=== PATIENT | female | born 1955 | race Caucasian/White ===

== ENCOUNTER 2018-01-04 06:36 | Inpatient (IN) | payer BC, SELFPAY ==
[2018-01-04] VITALS (14 sets, daily range): BP systolic 80–126; BP diastolic 61–80; PULSE 58–82; RESP 12–20; TEMP 36.5–36.9; O2SAT 96–100; BMI 26.2; BMI 26.4; BMI 26.5
[2018-01-04 06:58] LABS: Absolute Lymphocyte Count 0.95 X10^3/ul (0.83-4.51); Absolute Neutrophil Count 11.7 X10^3/uL (2.0-7.7); Basophil# 0.02 X10^3/uL; Basophil% 0.2 % (0-1); Eosinophil# 0.05 X10^3/uL; Eosinophils% 0.4 % (0-5); Hemoglobin 15.3 g/dl (12.0-15.0); Lymphocyte # 0.95 X10^3/ul (4.0); Lymphocyte % 7.2 % (19-41); Mean Corp Hgb Conc 33.3 g/gl (32-36); Mean Corpuscular Hgb 31.5 pg (27.0-32.0); Mean Corpuscular Volume 94.8 fL (81-99); Mean Platelet Vol. 9.7 fl (6.2-12.0); Monocyte# 0.41 X10^3/uL; Monocyte% 3.1 % (0-10); Neutrophil # 11.74 X10^3/uL (2.7-7.7); Neutrophil % 88.9 % (47-70); Platelet Count 300 K/mm3 (150-450); RBC Distribution Width CV 12.8 % (11.6-14.6); RBC Distribution Width SD 44.1 fl (35.1-43.9); Red Blood Count 4.85 M/mm3 (4.2-5.4); White Blood Count 13.2 K/mm3 (4.4-11.0)
--- NOTE | 2018-01-04 06:59 | ED.VISSUMM ---
- ER Visit Summary Date of Service: 01/04/18 Chief Complaint: Bilateral abdominal pain with diarrhea and orthostatic symptoms History of Present Illness: The patient is a 62 F who has history of hypertension, diverticulitis with abscess and perforation who presents with bilateral abdominal pain associated with diarrhea. Onset of symptoms early this morning, 03: 00. Patient believes she saw blood with her diarrhea. She has had no ill contacts. She has not been on antibiotics recently. She has not eaten anything that had an unusual taste. She reports many loose stools. She reports the abdominal pain is right and left lower quadrant. She denies any discomfort with walking. She denies fever, chills or night sweats. She denies dysuria, frequency, urgency or hematuria. She denies any vaginal bleeding. She denies hematemesis. Patient denies any weight gain or weight loss. She denies any ocular, visual auditory symptoms. She denies any cardiac respiratory symptoms. She denies bruising easily and is on no anticoagulant or antiplatelet medication. She states her [facility] physician Dr. Cody and surgeon is Dr. Miller Currie. Physical Examination: Vital signs noted and remarkable for blood pressure of 80/61. She is not tachycardic. She is on no beta-michael. Head is atraumatic normocephalic. Pupils are equal round reactive. Extraocular muscles are intact. TMs are pearly white with landmarks noted. Nares patent with no drainage. Posterior pharynx without erythema or exudate. Uvula is midline. There is no dysphonia or dysphasia. Trachea is midline. There is no stridor with auscultation of the neck. Heart is regular without murmur, gallop or rub. S1 and S2 are normal. Lungs are clear to auscultation with good movement of air bilaterally. Abdomen is slightly tympanitic with tenderness right and left lower quadrant. There is no guarding or rebound tenderness. There is no inguinal lymphadenopathy or hernia. Rectal exam reveals no hemorrhoids, fissures or fistulas. Stool is brown with no blood noted. Neuro exam is nonfocal. Test Results: White count is elevated at 13.2 thousand with 89 segs no bands. CMP is remarkable for glucose of 153, BUN of 22 and a creatinine of 1.38. BUN to creatinine ratio is less than 21. GFR is 41. Lactate elevated 2.6. CT of the abdomen pelvis with IV contrast reveals pancolitis. Emergency Department Course and Treatment: IV was established. Since she is hypotensive she will receive a bolus. EKG was obtained to evaluate for evidence of cardiac ischemia since she is greater than 6 years of age. Appropriate blood work was obtained. Since there is no gross blood, melena or maroon stool she was not typed and crossed. Will reassess in 30-45 minutes to determine if more fluids are needed and further testing. With infectious etiology of her hypotension patient received additional fluids 2.5 L which is greater than 30 cc/kg. Blood cultures were ordered at that time I reviewed CT results and antibiotics were ordered. The hospitalist was paged for admission to PCU versus ICU. Treatment Plan: IV antibiotics, fluids and treatment for severe sepsis. She has seen Dr. Currie in the past for diverticulitis with perforated abscess. Disposition: Full admission Impression: 1. Hypotension fluid responsive 2. Severe sepsis 3. Pancolitis 4. Acute renal insufficiency 5. Hyperglycemia and nondiabetic patient This note was generated with [employer] dictation software. It may contain incorrect words, spelling, and punctuation that were not noted in review of the chart prior to signing ED Disposition - Plan for ED Patient: Chief Complaint: Abd Pain Referrals: Alexis Clark MD [Primary Care Provider] -
[2018-01-04 07:06] LABS: Bedside Glucose 137 mg/dL (70-110)
[2018-01-04 07:07] LABS: Anion Gap 10 (5-15); BUN 22 mg/dL (7-18); BUN/Creat Ratio 15.9 RATIO (10-20); Calcium,Total 10.3 mg/dL (8.5-10.1); Chloride 104 mmol/L (98-107); Creatinine, Serum 1.38 mg/dL (0.55-1.02); EST Glomerular Filtration Rate 41 mL/min (>60); Est Glom Filt Rate - Afr Amer 50 mL/min (>60); Estimated Creatinine Clearance 37.55 ml/min; Glucose 153 mg/dL (74-106); Potassium 3.7 mmol/L (3.5-5.1); Sodium Level 138 mmol/L (136-145)
[2018-01-04 07:12] LABS: POSITIVE COUNT NO; POSITIVE DIFFERENTIAL NO; POSITIVE MORPHOLOGY NO
[2018-01-04 07:18] LABS: Lactic Acid 2.6 mmol/L (0.4-2.0)
--- NOTE | 2018-01-04 07:18 | ED.RN ---
PER LAB LACTIC ACID 2.6, DR FERREIRA AWARE.
[2018-01-04] MEDS: 0.9% Normal Saline 1,000 ML 1000 ML IV (07:32)
[2018-01-04] MEDS: Ciprofloxacin 400 MG/200 ML BAG 200 MG IV ×2 (10:11→23:09)
--- NOTE | 2018-01-04 10:20 | CM.ED ---
Social Work Note Into complete initial assessment. Introduced self and role at [facility]. The pt reports to live alone in a one-story home and denies access issues. Pt reports to be independent with ADL's and denies use of DME. Confirms that her PCP is Dr. Clark. She has an appointment with Dr. Denis Villalpando in [place] tomorrow for her thyroid that she requests be cancelled. She also has an appointemnt on Thursday for a neuro scan. At this time does not want cancelled if she is discharged in time to have that scan done. Pt works FT and denies any anticipated needs at discharge. Uses [facility] in [place], and informed her of the pharmacy here at the hospital if she would like to use at discharge. RN CM on assigned unit to follow for discharge planning needs. Placed call to Dr. Villalpando's office in [place] at [phone] and cancelled the pt's appointment for tomorrow at 0815. Catia Bruce, [employer], MEDIA STRATEGIST
[2018-01-04 10:53] LABS: Reflex Lactate? Y
[2018-01-04 11:42] LABS: LDH 198 U/L (84-246)
[2018-01-04 12:07] LABS: Lactic Acid 2.4 mmol/L (0.4-2.0)
[2018-01-04] MEDS: 0.9% Normal Saline 1,000 ML 150 ML IV ×2 (12:36→20:29)
[2018-01-04] MEDS: Heparin Injection (Vial) 5,000 UNIT/ML VIAL 5000 UNIT SC ×2 (12:36→23:06)
--- NOTE | 2018-01-04 14:36 | PCM.HP.STD ---
Problem List (1) Colitis Status: Acute (2) Severe sepsis Status: Acute (3) Hypertension Status: Chronic (4) Hypotension Status: Acute History of Present Illness Date of Admission: 01/04/18 Chief Complaint: Abdominal pain and BRBPR The patient is a 62 year old F with a h/o non-malignant hypercalcemia, and HTN presenting with only a few hour h/o severe abdominal pain. She states she was in her usual health yesterday evening when she went to bed. She woke up this morning at 3 am with severe abdominal pain and diarrhea. She noticed that when she would wipe there was bright red blood on the toilet paper and in the toilet, but the stool was brown liquid. She has had diverticulitis in the past but nothing like this. She did not have any vomiting and the pain did not improve so she presented to the ER. CT in the ER showed a canales colitis with most of the inflammation on the right and transverse colon per my read. In the ER she was hypotensive into the 80's which improved with fluid and her lactate was 2.6 so she was admitted to the PCU for further management. 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 Denies: Nausea Genitourinary: Denies: Dysuria, Frequency Musculoskeletal: Denies: Joint Pain, Joint Tenderness Skin: Denies: Dryness, Jaundice, Rash Neurological: Denies: Blurred vision, Confusion, Focal weakness Psychiatric: Denies: Anxiety, Depression Hematologic/ Lymphatic: Denies: Adenopathy, Easy Bruising, Easy Bleeding VTE Information - Inpt Only VTE Present on Admission: No Patient Problems: Active and Suspected Problems Colitis (Acute) - Physical Exam General: Alert, Oriented x3, Cooperative, No apparent distress HEENT: Atraumatic, EOMI, Normocephalic Oral: Moist Mucosa Neck: Supple, No JVD Lungs: Clear to auscultation, Normal air movement, No rhonchi, No wheeze, No rales Cardiovascular: Regular rate, Regular Rhythm, Normal S1, Normal S2, No murmurs Abdomen: Soft, Non-Distended, No Hepato-splenomegaly, Tender - mild and generalized Extremities: No edema, Capillary Refill Less than 3 Seconds Skin: No rashes Neurological: Motor Exam 5/5 strength throughout, Sensory exam intact to light touch and pain Psych/Mental Status: Normal Affect, Appropriate Vital Signs Temp Pulse Resp BP Pulse Ox 98.0 F 58 L 17 118/78 100 01/04/18 12:00 01/04/18 12:00 01/04/18 12:00 01/04/18 12:00 01/04/18 12:00 Oxygen Delivery Method Room Air Weight: 158 lb 15.253 oz Body Mass Index (BMI) 26.4 Intake and Output for Last 24 Hours 01/02/18 01/03/18 01/04/18 23:59 23:59 23:59 Intake Total 735 / 735 Balance 735 / 735 Laboratory Tests Past 24 Hrs 01/04/18 11:12 Lactic Acid 2.4 H Assessment/Plan All Active Problems Colitis (Acute) Severe sepsis (Acute) Hypokalemia (Acute) Hypotension (Acute) Intra-abdominal free air of unknown etiology (Acute) 1. Severe sepsis with an elevated lactate secondary to colitis/Hematochezia - The differential with her is infectious vs inflammatory. The colitis is too diffuse to be ischemic - C/w cipro/flagyl for now - NS@150 - Lactate was elevated to 2.6 and improved to 2.4 so will continue with resuscitation - She was hypotensive into the 80's which hs resolved with sepsis bolus in the ER - Blood and stool cultures pending - C. diff is unlikely but will send if she has a loose BM - Monitor on PCU - NPO until pain improves - The blood was secondary to the diarrhea and not the colitis 2. Non-malignant hypercalcemia - Will continue IVF and her fosamax while admitted - She was to have a parathyroid scan today as an outpatient which will have to be rescheduled DVT: Heparin/SCDs Diet: NPO Code: FULL Code Visit Inpatient E&M: 57238 Init Hosp L3
--- NOTE | 2018-01-04 17:03 | NURSING ---
This RN taking over care at this time
[2018-01-04 20:25] LABS: Absolute Lymphocyte Count 1.68 X10^3/ul (0.83-4.51); Absolute Neutrophil Count 3.5 X10^3/uL (2.0-7.7); Basophil# 0.01 X10^3/uL; Basophil% 0.2 % (0-1); Eosinophil# 0.07 X10^3/uL; Eosinophils% 1.2 % (0-5); Hemoglobin 12.1 g/dl (12.0-15.0); Lymphocyte # 1.68 X10^3/ul (4.0); Lymphocyte % 29.6 % (19-41); Mean Corp Hgb Conc 32.7 g/gl (32-36); Mean Corpuscular Hgb 31.2 pg (27.0-32.0); Mean Corpuscular Volume 95.4 fL (81-99); Mean Platelet Vol. 9.6 fl (6.2-12.0); Monocyte# 0.46 X10^3/uL; Monocyte% 8.1 % (0-10); Neutrophil # 3.45 X10^3/uL (2.7-7.7); Neutrophil % 60.9 % (47-70); Platelet Count 234 K/mm3 (150-450); RBC Distribution Width CV 12.9 % (11.6-14.6); RBC Distribution Width SD 44.4 fl (35.1-43.9); Red Blood Count 3.88 M/mm3 (4.2-5.4); White Blood Count 5.7 K/mm3 (4.4-11.0)
[2018-01-04 20:26] LABS: POSITIVE COUNT NO; POSITIVE DIFFERENTIAL NO; POSITIVE MORPHOLOGY NO
--- NOTE | 2018-01-04 20:27 | PCM.CONS.GEN ---
Problem List (1) Colitis Status: Acute (2) Severe sepsis Status: Acute (3) Hypertension Status: Chronic Reason for Consult Date of Consultation: 01/04/18 Reason for Consultation: abdominal pain-colitis History of Present Illness: The patient is a 62 year old F who presented to [facility] for 1 day history of abdominal pain. The patient began her usual state of health without complaints yesterday. She stated she walks 5 miles and was otherwise doing well. She notes no recent antibiotic use. She notes no recent travel. She notes no other recent illnesses. The patient noted onset of abdominal pain early in the morning. Approximately 3 AM. She then noted the onset of crampy abdominal pain and diarrhea, which she described as looking bloody in character. She presented to [facility] emergency room with these complaints. She denied nausea or vomiting. In the emergency department, she was noted to have leukocytosis with a left shift. She also had an elevated lactic acid level. She was found to be somewhat hypotensive. She responded to fluid bolus. Over time, her lactic acid level decreased but was still mildly elevated. CT scan of the abdomen and pelvis with IV but not oral contrast was obtained. This demonstrated was felt to be a canales colitis with more significant colitis seen in the right colon and transverse colon. I initially seen the patient on June 13, 2015 when she presented with peritonitis. The patient was found to have free air with very significant small bowel inflammation in the pelvis and a right femoral hernia with air and tissue on CT scan contained in the hernia. She was taken to surgery and underwent reduction and repair of her femoral hernia which seemed to be more incarcerated pericolonic/Intestinal fat. the patient had pus in the pelvis, but after irrigation. Exploratory laparotomy. No small bowel defects were noted and she had diverticulosis without was felt to be perforated diverticulitis. The patient had a bit of a maged postoperative course. Otherwise, did well. Later that summer, she underwent upper and lower endoscopy, which weren't tasted diverticulosis and no upper GI abnormalities. She developed an incisional hernia in December underwent incisional hernia repair and laparoscopic lysis of adhesions with a large 23x18 cm mesh placement. the patient notes an episode of diverticulitis last year which was treated with oral antibiotics, but otherwise she has been doing well. Past Medical History Past Medical History (Chronic Problems): Chronic Problems Hypertension (Chronic) Allergies No Known Allergies Allergy (Verified 12/27/15 13:08) Home Medications: Ambulatory Orders Medication Instructions Recorded Zolpidem Tartrate [Ambien] 10 mg PO QHS 06/13/15 Alendronate Sodium [Alendronate 1 tab PO QWEEK 01/04/18 Sodium] Lisinopril [Zestril] 1 tab PO DAILY 01/04/18 Surgical History: hysterectomy, - - exploratory laparotomy with repair of right femoral hernia-no obvious bowel perforation, laparoscopic ventral hernia repair and lysis of adhesions with 23 x 18 cm mesh placement Psychiatric History: Anxiety FBI PROFILER History: No 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 Denies: Nausea, Vomiting Genitourinary: Denies: Dysuria Musculoskeletal: Denies: Joint Pain, Joint Tenderness Skin: Denies: Rash, Wounds Neurological: Denies: Numbness, Tingling, Focal weakness Psychiatric: Denies: Anxiety, Depression, Homicidal Ideations, Suicidal Ideations Hematologic/ Lymphatic: Denies: Easy Bruising, Easy Bleeding Patient Problems: Active and Suspected Problems Colitis (Acute) - Physical Exam General: Alert, Oriented x3, Cooperative Lungs: Clear to auscultation, Normal air movement Cardiovascular: Regular rate, No murmurs Abdomen: Bowel Sounds Present, Soft, Non Tender Vital Signs Temp Pulse Resp BP Pulse Ox 98.2 F 72 14 115/70 98 01/04/18 16:26 01/04/18 18:37 01/04/18 16:26 01/04/18 16:26 01/04/18 16:26 Oxygen Delivery Method Room Air Weight: 72.1 kg Body Mass Index (BMI) 26.4 Intake and Output for Last 24 Hours 01/02/18 01/03/18 01/04/18 23:59 23:59 23:59 Intake Total 1450 / 1450 Balance 1450 / 1450 Laboratory Tests Past 24 Hrs 01/04/18 01/04/18 01/04/18 11:12 19:55 19:55 WBC 5.7 RBC 3.88 L Hgb 12.1 Hct 37.0 MCV 95.4 MCH 31.2 MCHC 32.7 RDW 12.9 RDW Differential 44.4 H Plt Count 234 MPV 9.6 Immature Gran % (Auto) 0.000 Neut % (Auto) 60.9 Lymph % (Auto) 29.6 [place] % (Auto) 8.1 Eos % (Auto) 1.2 Baso % (Auto) 0.2 Absolute Neuts (auto) 3.5 Absolute Lymphs (auto) 1.68 Total Counted Not Reportable Lactic Acid 2.4 H Pending Assessment/Plan All Active Problems Colitis (Acute) Severe sepsis (Acute) Hypokalemia (Acute) Hypotension (Acute) Intra-abdominal free air of unknown etiology (Acute) Abdominal pain, diarrhea, hematochezia, CT scan consistent with pancolitis, more so on the right side and transverse colon. patient is currently doing well with minimal complaints of pain. She has active bowel sounds, but states she is not having any additional flatus or stools. Stool cultures have been ordered, but are currently pending issues, not had a bowel movement since admission. Patient's currently afebrile. Repeat white blood cell count is now within the normal range. Repeat lactic acid level is currently pending. For now, we'll follow patient clinically. May consider unprepped colonoscopy just to evaluate the mucosal lining given CT scan findings.
[2018-01-04 20:44] LABS: Lactic Acid 1.2 mmol/L (0.4-2.0)
[2018-01-04] MEDS: Zolpidem Tartrate 5 MG Tablet PO (23:06)
[2018-01-05] VITALS (10 sets, daily range): BP systolic 107–122; BP diastolic 63–77; PULSE 53–76; RESP 16; TEMP 36.4–36.9; O2SAT 98
--- NOTE | 2018-01-05 02:27 | NURSING ---
Verbal report given to Alex Fall RN. She will resume care of pt at this time.
[2018-01-05] MEDS: 0.9% Normal Saline 1,000 ML 150 ML IV (04:29)
[2018-01-05 05:34] LABS: Absolute Lymphocyte Count 1.71 X10^3/ul (0.83-4.51); Absolute Neutrophil Count 2.1 X10^3/uL (2.0-7.7); Basophil# 0.01 X10^3/uL; Basophil% 0.2 % (0-1); Eosinophil# 0.12 X10^3/uL; Eosinophils% 2.9 % (0-5); Hematocrit 35.3 % (37-47); Hemoglobin 11.3 g/dl (12.0-15.0); Lymphocyte # 1.71 X10^3/ul (4.0); Lymphocyte % 41.1 % (19-41); Mean Corpuscular Hgb 30.6 pg (27.0-32.0); Mean Corpuscular Volume 95.7 fL (81-99); Mean Platelet Vol. 9.6 fl (6.2-12.0); Monocyte% 4.8 % (0-10); Neutrophil # 2.12 X10^3/uL (2.7-7.7); Platelet Count 217 K/mm3 (150-450); RBC Distribution Width SD 44.9 fl (35.1-43.9); Red Blood Count 3.69 M/mm3 (4.2-5.4); White Blood Count 4.2 K/mm3 (4.4-11.0)
[2018-01-05 05:41] LABS: POSITIVE COUNT NO; POSITIVE DIFFERENTIAL NO; POSITIVE MORPHOLOGY NO
[2018-01-05 05:56] LABS: Anion Gap 10 (5-15); BUN 6 mg/dL (7-18); BUN/Creat Ratio 9.9 RATIO (10-20); Calcium,Total 8.3 mg/dL (8.5-10.1); Chloride 117 mmol/L (98-107); Creatinine, Serum 0.61 mg/dL (0.55-1.02); EST Glomerular Filtration Rate 106 mL/min (>60); Est Glom Filt Rate - Afr Amer 128 mL/min (>60); Estimated Creatinine Clearance 84.94 ml/min; Glucose 99 mg/dL (74-106); Potassium 3.5 mmol/L (3.5-5.1); Sodium Level 146 mmol/L (136-145)
[2018-01-05] MEDS: Ciprofloxacin 400 MG/200 ML BAG 200 MG IV ×2 (09:33→21:13)
[2018-01-05] MEDS: Heparin Injection (Vial) 5,000 UNIT/ML VIAL 5000 UNIT SC ×2 (09:34→21:40)
[2018-01-05] MEDS: Ondansetron 4 MG/2 ML Vial IV (12:12)
--- NOTE | 2018-01-05 12:27 | PCM.PN.SRG ---
Patient Problems: Active and Suspected Problems Colitis (Acute) Subjective: minimal lower abdominal cramping. No flatus or bowel movement - Physical Exam General: Alert, Oriented x3, Cooperative Lungs: Clear to auscultation, Normal air movement Cardiovascular: Regular rate, No murmurs Abdomen: Bowel Sounds Present, Soft, Non Tender - to minimal tenderness in the lower abdomen Vital Signs Temp Pulse Resp BP Pulse Ox 97.7 F L 59 L 16 114/69 98 01/05/18 09:23 01/05/18 11:03 01/05/18 09:23 01/05/18 09:23 01/05/18 09:23 Oxygen Delivery Method Room Air Weight: 72.1 kg Body Mass Index (BMI) 26.4 Intake and Output for Last 24 Hours 01/03/18 01/04/18 01/05/18 23:59 23:59 23:59 Intake Total 2255 / 2255 1882 / 1882 Balance 2255 / 2255 1882 / 1882 Microbiology Past 72 Hours 01/05/18 10:51 Stool Lactoferrin - Final Stool Laboratory Tests Past 24 Hrs 01/04/18 01/04/18 01/05/18 19:55 19:55 04:52 WBC 5.7 4.2 L RBC 3.88 L 3.69 L Hgb 12.1 11.3 L Hct 37.0 35.3 L MCV 95.4 95.7 MCH 31.2 30.6 MCHC 32.7 32.0 RDW 12.9 13.0 RDW Differential 44.4 H 44.9 H Plt Count 234 217 MPV 9.6 9.6 Immature Gran % (Auto) 0.000 0.000 Neut % (Auto) 60.9 51.0 Lymph % (Auto) 29.6 41.1 H [place] % (Auto) 8.1 4.8 Eos % (Auto) 1.2 2.9 Baso % (Auto) 0.2 0.2 Absolute Neuts (auto) 3.5 2.1 Absolute Lymphs (auto) 1.68 1.71 Total Counted Not Reportable Not Reportable Sodium Potassium Chloride Carbon Dioxide Anion Gap BUN Creatinine Estim Creat Clear Calc Est GFR (MDRD) Af Amer Est GFR (MDRD) Non-Af BUN/Creatinine Ratio Glucose Lactic Acid 1.2 Calcium 01/05/18 04:52 WBC RBC Hgb Hct MCV MCH MCHC RDW RDW Differential Plt Count MPV Immature Gran % (Auto) Neut % (Auto) Lymph % (Auto) [place] % (Auto) Eos % (Auto) Baso % (Auto) Absolute Neuts (auto) Absolute Lymphs (auto) Total Counted Sodium 146 H Potassium 3.5 Chloride 117 H Carbon Dioxide 19.0 L Anion Gap 10 BUN 6 L Creatinine 0.61 Estim Creat Clear Calc 84.94 Est GFR (MDRD) Af Amer 128 Est GFR (MDRD) Non-Af 106 BUN/Creatinine Ratio 9.9 L Glucose 99 Lactic Acid Calcium 8.3 L Medical Necessity - Tobacco Use Smoking Status: Never smoker Assessment/Plan All Active Problems Colitis (Acute) Severe sepsis (Acute) Hypokalemia (Acute) Hypotension (Acute) Intra-abdominal free air of unknown etiology (Acute) Abdominal pain, diarrhea, hematochezia, CT scan consistent with pancolitis, more so on the right side and transverse colon. patient is currently doing well with minimal complaints of pain. She has active bowel sounds, but states she is not having any additional flatus or stools. Stool cultures have been ordered, but are currently pending issues, not had a bowel movement since admission. Patient's currently afebrile. Repeat white blood cell count yesterday was within the normal range. Repeat lactic acid level normalized. Laboratory studies this morning, now demonstrates a lymphocytosis and overall low white blood cell count-likely consider viral gastroenteritis. For now, we'll follow patient clinically. May consider unprepped colonoscopy just to evaluate the mucosal lining given CT scan findings.
--- NOTE | 2018-01-05 14:20 | PCM.PROGNOTE ---
<Jd Bowden - Last Filed: 01/05/18 14:20> Patient Problems: Active and Suspected Problems Colitis (Acute) Subjective: Patient reports that her abdominal pain and nausea have all significantly improved. No BM since yesterday AM. No blood since prior to admission. No flatus. Some nausea without vomiting this AM. No fever or chills. - Physical Exam General: Alert, Oriented x3, Cooperative HEENT: Atraumatic, PERRLA, EOMI, Normocephalic Neck: Supple, No JVD, Negative Carotid Bruits Lungs: Clear to auscultation, Normal air movement Cardiovascular: Regular rate, No murmurs Abdomen: Bowel Sounds Present, Tender - llq, mild tender to moderate palp, no guarding. Extremities: No edema, Capillary Refill Less than 3 Seconds Skin: No rashes, No breakdown Musculoskeletal: No Tenderness to Palpation of Joints or Extremities Neurological: Cranial nerves II-XII grossly intact Psych/Mental Status: Normal Affect, Appropriate, Alert and oriented to time, place, person, mood and affect Vital Signs Temp Pulse Resp BP Pulse Ox 97.7 F L 59 L 16 114/69 98 01/05/18 09:23 01/05/18 11:03 01/05/18 09:23 01/05/18 09:23 01/05/18 09:23 Oxygen Delivery Method Room Air Weight: 158 lb 15.253 oz Body Mass Index (BMI) 26.4 Intake and Output for Last 24 Hours 01/03/18 01/04/18 01/05/18 23:59 23:59 23:59 Intake Total 2255 / 2255 1882 / 1882 Balance 2255 / 2255 1882 / 1882 Microbiology Past 72 Hours 01/05/18 10:51 C. difficile DNA Amplification - Final Stool 01/05/18 10:51 Stool Lactoferrin - Final Stool Laboratory Tests Past 24 Hrs 01/04/18 01/04/18 01/05/18 19:55 19:55 04:52 WBC 5.7 4.2 L RBC 3.88 L 3.69 L Hgb 12.1 11.3 L Hct 37.0 35.3 L MCV 95.4 95.7 MCH 31.2 30.6 MCHC 32.7 32.0 RDW 12.9 13.0 RDW Differential 44.4 H 44.9 H Plt Count 234 217 MPV 9.6 9.6 Immature Gran % (Auto) 0.000 0.000 Neut % (Auto) 60.9 51.0 Lymph % (Auto) 29.6 41.1 H [place] % (Auto) 8.1 4.8 Eos % (Auto) 1.2 2.9 Baso % (Auto) 0.2 0.2 Absolute Neuts (auto) 3.5 2.1 Absolute Lymphs (auto) 1.68 1.71 Total Counted Not Reportable Not Reportable Sodium Potassium Chloride Carbon Dioxide Anion Gap BUN Creatinine Estim Creat Clear Calc Est GFR (MDRD) Af Amer Est GFR (MDRD) Non-Af BUN/Creatinine Ratio Glucose Lactic Acid 1.2 Calcium 01/05/18 04:52 WBC RBC Hgb Hct MCV MCH MCHC RDW RDW Differential Plt Count MPV Immature Gran % (Auto) Neut % (Auto) Lymph % (Auto) [place] % (Auto) Eos % (Auto) Baso % (Auto) Absolute Neuts (auto) Absolute Lymphs (auto) Total Counted Sodium 146 H Potassium 3.5 Chloride 117 H Carbon Dioxide 19.0 L Anion Gap 10 BUN 6 L Creatinine 0.61 Estim Creat Clear Calc 84.94 Est GFR (MDRD) Af Amer 128 Est GFR (MDRD) Non-Af 106 BUN/Creatinine Ratio 9.9 L Glucose 99 Lactic Acid Calcium 8.3 L Medical Necessity - Tobacco Use Smoking Status: Never smoker Assessment/Plan All Active Problems Colitis (Acute) Severe sepsis (Acute) Hypokalemia (Acute) Hypotension (Acute) Intra-abdominal free air of unknown etiology (Acute) 1. Acute severe sepsis 2/2 colitis - no further bm. Pain and nausea improved. Cipro/flagyl. Hx diverticulitis and abscess. Advance to clears. Kush following - possible colonoscopy. Lactate resolved. No fever, leukocytosis. Mild drop in hemoglobin, may be dilutional vs acute blood loss. 2. BLAIR present on admission 2/2 sepsis - resolved. LORNA held. 3. HTN - stable 4. Hypercalcemia - now low. DVT ppx: heparin DC planning: home when diet able to be further advanced and pending plan for colonoscopy. This patient was seen by Jd Bowden PA-C under the supervision of Doctor Duane. <Kirk Zepeda - Last Filed: 01/05/18 15:49> - Physical Exam Vital Signs Temp Pulse Resp BP Pulse Ox 97.9 F 61 16 122/77 H 98 01/05/18 15:38 01/05/18 15:38 01/05/18 15:38 01/05/18 15:38 01/05/18 15:38 Oxygen Delivery Method Room Air Weight: 158 lb 15.253 oz Body Mass Index (BMI) 26.4 Intake and Output for Last 24 Hours 01/03/18 01/04/18 01/05/18 23:59 23:59 23:59 Intake Total 2255 / 2255 1882 / 1882 Balance 2255 / 2255 1882 / 188 Microbiology Past 72 Hours 01/05/18 10:51 Enteric Bacteriology - Final Stool 01/05/18 10:51 C. difficile DNA Amplification - Final Stool 01/05/18 10:51 Stool Lactoferrin - Final Stool Laboratory Tests Past 24 Hrs 01/04/18 01/04/18 01/05/18 19:55 19:55 04:52 WBC 5.7 4.2 L RBC 3.88 L 3.69 L Hgb 12.1 11.3 L Hct 37.0 35.3 L MCV 95.4 95.7 MCH 31.2 30.6 MCHC 32.7 32.0 RDW 12.9 13.0 RDW Differential 44.4 H 44.9 H Plt Count 234 217 MPV 9.6 9.6 Immature Gran % (Auto) 0.000 0.000 Neut % (Auto) 60.9 51.0 Lymph % (Auto) 29.6 41.1 H [place] % (Auto) 8.1 4.8 Eos % (Auto) 1.2 2.9 Baso % (Auto) 0.2 0.2 Absolute Neuts (auto) 3.5 2.1 Absolute Lymphs (auto) 1.68 1.71 Total Counted Not Reportable Not Reportable Sodium Potassium Chloride Carbon Dioxide Anion Gap BUN Creatinine Estim Creat Clear Calc Est GFR (MDRD) Af Amer Est GFR (MDRD) Non-Af BUN/Creatinine Ratio Glucose Lactic Acid 1.2 Calcium 01/05/18 04:52 WBC RBC Hgb Hct MCV MCH MCHC RDW RDW Differential Plt Count MPV Immature Gran % (Auto) Neut % (Auto) Lymph % (Auto) [place] % (Auto) Eos % (Auto) Baso % (Auto) Absolute Neuts (auto) Absolute Lymphs (auto) Total Counted Sodium 146 H Potassium 3.5 Chloride 117 H Carbon Dioxide 19.0 L Anion Gap 10 BUN 6 L Creatinine 0.61 Estim Creat Clear Calc 84.94 Est GFR (MDRD) Af Amer 128 Est GFR (MDRD) Non-Af 106 BUN/Creatinine Ratio 9.9 L Glucose 99 Lactic Acid Calcium 8.3 L Assessment/Plan Addendum: Dr. Zepeda I personally examined the patient and reviewed the chart. I agree with the above. She says that her pain is improving however she has become more nauseated this afternoon. I have added Compazine to help control this in addition to her Zofran. She feels that part of this is due to having a severe headache she states that she drinks a significant amount of coffee during the day and she has been unable to tolerate any caffeine for the last 2 days. We are still awaiting stool sample to be able to run C. difficile analysis as well as other stool studies to further clarify as to the cause of her colitis. Appreciate surgical recommendations. Code Visit Inpatient E&M: 58720 Subs Hosp L2
[2018-01-05] MEDS: 0.9% Normal Saline 1,000 ML 100 ML IV (14:35)
[2018-01-05] MEDS: proCHLORPERazine 10 MG/2 ML Vial IV (14:36)
[2018-01-05] MEDS: Zolpidem Tartrate 5 MG Tablet PO (21:40)
[2018-01-06] VITALS (16 sets, daily range): BP systolic 104–111; BP diastolic 56–73; PULSE 40–74; RESP 16; TEMP 36.3–37.1; O2SAT 97–100; BMI 26.4
[2018-01-06] MEDS: 0.9% Normal Saline 1,000 ML 100 ML IV ×3 (02:53→20:26)
[2018-01-06 05:25] LABS: Absolute Lymphocyte Count 1.69 X10^3/ul (0.83-4.51); Absolute Neutrophil Count 1.9 X10^3/uL (2.0-7.7); Basophil# 0.02 X10^3/uL; Basophil% 0.5 % (0-1); Eosinophil# 0.08 X10^3/uL; Hematocrit 35.5 % (37-47); Hemoglobin 11.5 g/dl (12.0-15.0); Lymphocyte # 1.69 X10^3/ul (4.0); Lymphocyte % 42.8 % (19-41); Mean Corp Hgb Conc 32.4 g/gl (32-36); Mean Corpuscular Hgb 30.9 pg (27.0-32.0); Mean Corpuscular Volume 95.4 fL (81-99); Mean Platelet Vol. 9.6 fl (6.2-12.0); Monocyte% 7.6 % (0-10); Neutrophil # 1.86 X10^3/uL (2.7-7.7); Neutrophil % 47.1 % (47-70); Platelet Count 204 K/mm3 (150-450); RBC Distribution Width SD 45.2 fl (35.1-43.9); Red Blood Count 3.72 M/mm3 (4.2-5.4)
[2018-01-06 05:29] LABS: POSITIVE COUNT NO; POSITIVE DIFFERENTIAL NO; POSITIVE MORPHOLOGY NO
[2018-01-06] MEDS: Ciprofloxacin 400 MG/200 ML BAG 200 MG IV ×2 (09:17→23:13)
[2018-01-06] MEDS: Ondansetron 4 MG/2 ML Vial IV ×2 (09:17→19:00)
--- NOTE | 2018-01-06 11:37 | PCM.OPRPT ---
Problem List (1) Colitis Status: Acute (2) Severe sepsis Status: Acute (3) Hypertension Status: Chronic Report of Operation Date of Procedure: 01/06/18 Pre-Operative Diagnosis: ? COLITIS ON CT SCAN, ?HEMATOCHEZIA Post-Operative Diagnosis: MINIMLA COLITIS, DIVERTICULOSIS, OTHERWISE NORMAL TO MID TRANSVERSE COLON Surgery/Procedure Performed:: COLONOSCOPY WITH BIOPSY Type of Anesthesia:: MAC Anesthesiologist: Luis Ocampo Specimen's removed: TRANSVERSE COLON, DESCENDING COLON Description of Procedure: The patient was brought to the endoscopy suite. Sign in was performed verifying patient, site, planned procedure, critical nursing information, the patient was monitored with cardiac, pulse oximetric, and blood pressure monitoring devices. Monitored anesthetic care was provided for sedation. Following IV sedation the patient was positioned for colonoscopy. A digital rectal exam was performed which revealed no palpable abnormalities. The video colonoscope was advanced through unprepped stool. Due to the fact this was unprepped and tortuosity, colonoscopy was stopped with insertion at approximately 1 m, which is felt to be the proximal transverse colon. as the video colonoscope was withdrawn, the transverse colon appeared unremarkable. random transverse colon. Biopsies were obtained.There was a scant area felt to be mild petechial looking area with potentially mild colitis. This area was biopsied and sent separately. there was sigmoid diverticulosis. The patient tolerated the procedure well and was brought to recovery in stable condition
[2018-01-06] MEDS: Heparin Injection (Vial) 5,000 UNIT/ML VIAL 5000 UNIT SC ×2 (12:15→22:12)
[2018-01-06] MEDS: Acetaminophen 325 MG Tablet 650 MG PO (15:18)
--- NOTE | 2018-01-06 16:11 | PCM.PN.SRG ---
Patient Problems: Active and Suspected Problems Colitis (Acute) Subjective: small bowel movement overnight, no flatus, some burping and nausea - Physical Exam General: Alert, Oriented x3, Cooperative Abdomen: Bowel Sounds Present, Soft, Non Tender Vital Signs Temp Pulse Resp BP Pulse Ox 98.4 F 63 16 107/65 100 01/06/18 12:20 01/06/18 15:04 01/06/18 12:20 01/06/18 12:20 01/06/18 12:20 Oxygen Delivery Method Room Air Weight: 72.1 kg Body Mass Index (BMI) 26.4 Intake and Output for Last 24 Hours 01/04/18 01/05/18 01/06/18 23:59 23:59 23:59 Intake Total 2255 / 2255 2657 / 2657 2403 / 2403 Balance 2255 / 2255 2657 / 2657 2403 / 2403 Microbiology Past 72 Hours 01/05/18 10:51 Enteric Bacteriology - Final Stool 01/04/18 10:00 Blood Culture - Preliminary Blood Culture (Wb) - Anticubital Left No growth in 48 hours. 01/04/18 10:10 Blood Culture - Preliminary Blood Culture (Wb) - Right Wrist No growth in 48 hours. 01/05/18 10:51 C. difficile DNA Amplification - Final Stool 01/05/18 10:51 Stool Lactoferrin - Final Stool Laboratory Tests Past 24 Hrs 01/06/18 05:02 WBC 4.0 L RBC 3.72 L Hgb 11.5 L Hct 35.5 L MCV 95.4 MCH 30.9 MCHC 32.4 RDW 13.0 RDW Differential 45.2 H Plt Count 204 MPV 9.6 Immature Gran % (Auto) 0.000 Neut % (Auto) 47.1 Lymph % (Auto) 42.8 H [place] % (Auto) 7.6 Eos % (Auto) 2.0 Baso % (Auto) 0.5 Absolute Neuts (auto) 1.9 L Absolute Lymphs (auto) 1.69 Total Counted Not Reportable Medical Necessity - Tobacco Use Smoking Status: Never smoker Assessment/Plan All Active Problems Colitis (Acute) Severe sepsis (Acute) Hypokalemia (Acute) Hypotension (Acute) Intra-abdominal free air of unknown etiology (Acute) Abdominal pain, diarrhea, hematochezia, CT scan consistent with pancolitis, more so on the right side and transverse colon. patient is currently doing well with minimal complaints of pain. She has active bowel sounds, but states she is not having any additional flatus or stools. Stool cultures returned as positive for fecal leukocytes, but negative for C. difficile negative for ova and parasites. Patient's currently afebrile. patient's white blood cell count now is low with a lymphocytosis-questionable viral infection with ileus?. Abdominal multiview was obtained this morning. This demonstrated no significant bowel distention. I performed unprepped colonoscopy this morning, which demonstrated no significant colitis which demonstrated a small area in the descending colon with mild colitis.
--- NOTE | 2018-01-06 18:09 | PCM.PN.HOSP ---
Patient Problems: Active and Suspected Problems Colitis (Acute) Subjective: f/u for colitis with hematochezia Vitals/I&O's: Vital Signs Temp Pulse Resp BP Pulse Ox 98.4 F 63 16 107/65 100 01/06/18 12:20 01/06/18 15:04 01/06/18 12:20 01/06/18 12:20 01/06/18 12:20 Oxygen Delivery Method Room Air Weight: 72.1 kg Body Mass Index (BMI) 26.4 Intake and Output for Last 24 Hours 01/04/18 01/05/18 01/06/18 23:59 23:59 23:59 Intake Total 2255 / 2255 2657 / 2657 2403 / 2403 Balance 2255 / 2255 2657 / 2657 2403 / 2403 General: Alert, Oriented x3, Cooperative, No apparent distress, Well developed, Well nourished HEENT: Atraumatic Oral: Moist Mucosa Neck: Supple Lungs: Clear to auscultation Cardiovascular: Regular rate Abdomen: Bowel Sounds Present, Soft, Non Tender, Non-Distended Extremities: No edema Neurological: Neuro grossly intact Psych/Mental Status: Normal Affect Microbiology Past 72 Hours 01/05/18 10:51 Stool Enteric Bacteriology - Final 01/04/18 10:00 Blood Culture (Wb) - Anticubital Left Blood Culture - Preliminary No growth in 48 hours. 01/04/18 10:10 Blood Culture (Wb) - Right Wrist Blood Culture - Preliminary No growth in 48 hours. 01/05/18 10:51 Stool C. difficile DNA Amplification - Final 01/05/18 10:51 Stool Stool Lactoferrin - Final Laboratory Results 01/06/18 05:02: WBC 4.0 L, RBC 3.72 L, Hgb 11.5 L, Hct 35.5 L, MCV 95.4, MCH 30.9, MCHC 32.4, RDW 13.0, RDW Differential 45.2 H, Plt Count 204, MPV 9.6, Immature Gran % (Auto) 0.000, Neut % (Auto) 47.1, Lymph % (Auto) 42.8 H, [place] % (Auto) 7.6, Eos % (Auto) 2.0, Baso % (Auto) 0.5, Absolute Neuts (auto) 1.9 L, Absolute Lymphs (auto) 1.69, Total Counted Not Reportable Current Medications Acetaminophen (Tylenol) 650 mg PO Q4H PRN PRN PRN Reason: pain Last Admin: 01/06/18 15:18 Dose: 650 mg Alendronate Sodium (Fosamax) 35 mg PO Q7D [facility] Last Admin: 01/05/18 05:28 Dose: Not Given Heparin Sodium (Porcine) (Heparin Na) 5,000 unit SC Q12 [facility] Last Admin: 01/06/18 12:15 Dose: 5,000 unit Ciprofloxacin (Cipro) 400 mg in 200 mls @ 200 mls/hr IV BID [facility] Last Admin: 01/06/18 09:17 Dose: 200 mls/hr Metronidazole (Flagyl) 500 mg in 100 mls @ 100 mls/hr IV TID [facility] Last Admin: 01/06/18 13:43 Dose: 100 mls/hr Sodium Chloride () 1,000 mls @ 100 mls/hr IV .Q10H [facility] Last Admin: 01/06/18 12:30 Dose: 100 mls/hr Ibuprofen (Motrin) 400 mg PO TID PRN PRN PRN Reason: MILD PAIN (1-3/10) Magnesium Hydroxide (Milk Of Magnesia) 30 ml PO DAILY PRN PRN Reason: Constipation Ondansetron HCl (Zofran) 4 mg IV Q8H PRN PRN PRN Reason: NAUSEA Last Admin: 01/06/18 09:17 Dose: 4 mg Prochlorperazine Edisylate (Compazine Iv) 5 - 10 mg IV Q4H PRN PRN PRN Reason: NAUSEA/VOMITING Last Admin: 01/05/18 14:36 Dose: 5 mg Sodium Chloride () 5 - 30 ml IV UD PRN PRN Reason: SALINE FLUSH Zolpidem Tartrate (Ambien (Generic)) 5 mg PO QHS [facility] Last Admin: 01/05/18 21:40 Dose: 5 mg Medical Necessity - Tobacco Use Smoking Status: Never smoker Assessment/Plan All Active Problems Colitis (Acute) Severe sepsis (Acute) Hypokalemia (Acute) Hypotension (Acute) Intra-abdominal free air of unknown etiology (Acute) 1. Colitis. Colonoscopy done and showed largely normal colon. Just a small patch of petechiae which was biopsied Clinically doing much better. Will monitor and perhaps allow and begin to advance diet. 2. BLAIR. Resolved with fluids. Will continue to monitor Code Visit Inpatient E&M: 25644 Subs Hosp L3
[2018-01-06] MEDS: Ibuprofen 400 MG Tablet PO (18:13)
[2018-01-06] MEDS: Zolpidem Tartrate 5 MG Tablet PO (22:12)
--- NOTE | 2018-01-07 | COLBX_PTH ---
PATIENT: MAHSA THOMASON LOC: PCU U#:[id number] AGE/SX: 62/F ROOM: [facility] RE01/04/[address]: Dr. Abdirizak Osorio MD : [id number] BED: 1 DIS: 01/07/2018 SPEC #: [id number] RECD: 01/07/18 09:10 STATUS: ALFREDO RE #: [id number] DELFINA: 01/07/18 00:[address]: Simon Currie DEPT: SURGICAL PATHOLOGY RECD BY: Eduar Mahmood ENTERED: 01/07/18 09:11 SP TYPE: COLON BX OTHR DR: MD Dr. Kirk Al MD Dr. Richard Guttman, MD Dr. William Lago, MD Tissues: A - Transverse colon B - Descending colon Procedures: Surgery Specimen Level IV Comments: @ Ordering doctor for SUIV edited from to @ by ENMANUEL at 01/07/18 1107 @ Submitting doctor edited from to DR.RGUTTM Slaughter by LYSSAOD at 01/07/18 1107 HEADER OPERATION: Colonoscopy PRE-OP DIAGNOSIS: Colitis, sepsis TISSUE SUBMITTED: A ? Transverse colon biopsy, B ? Descending colon biopsy MICROSCOPIC DIAGNOSIS A. Transverse colon, biopsy: No significant pathologic change. No evidence of colitis. B. Descending colon, biopsy: No significant pathologic change. No evidence of colitis. AM:ayla 01/08/18 MICROSCOPIC DESCRIPTION Slides are reviewed. GROSS DESCRIPTION A - Received in fixative is one container labeled with the patient's name and designated transverse colon biopsy. The specimen consists of two irregular fragments of light martínez soft tissue that in aggregate measure 0.6 x 0.5 x 0.2 cm. The specimen is totally submitted in one cassette. B - Received in fixative is one container labeled with the patient's name and designated descending colon. The specimen consists of one irregular fragment of light martínez soft tissue that measures 0.3 x 0.2 x 0.1 cm. The specimen is totally submitted in one cassette. / AM:ayla 01/07/18 TC:5 CPT: 84149 x2
[2018-01-07 03:04] VITALS: PULSE 40
[2018-01-07 05:20] VITALS: BP 126/87; PULSE 62; RESP 16; TEMP 37.3; O2SAT 95
[2018-01-07 07:07] VITALS: PULSE 49
--- NOTE | 2018-01-07 07:24 | PCM.PN.SRG ---
Patient Problems: Active and Suspected Problems Colitis (Acute) Subjective: metallic taste in mouth and nausea vomiting after flagyl - Physical Exam General: Alert, Oriented x3, Cooperative Lungs: Clear to auscultation, Normal air movement Cardiovascular: Regular rate, No murmurs Abdomen: Bowel Sounds Present, Soft, Non Tender Vital Signs Temp Pulse Resp BP Pulse Ox 99.1 F 62 16 126/87 H 95 01/07/18 05:20 01/07/18 05:20 01/07/18 05:20 01/07/18 05:20 01/07/18 05:20 Oxygen Delivery Method Room Air Weight: 72.1 kg Body Mass Index (BMI) 26.4 Intake and Output for Last 24 Hours 01/05/18 01/06/18 01/07/18 23:59 23:59 23:59 Intake Total 2657 / 2657 3732 / 3732 707 / 707 Balance 2657 / 2657 3732 / 3732 707 / 707 Microbiology Past 72 Hours 01/05/18 10:51 Enteric Bacteriology - Final Stool 01/04/18 10:00 Blood Culture - Preliminary Blood Culture (Wb) - Anticubital Left No growth in 48 hours. 01/04/18 10:10 Blood Culture - Preliminary Blood Culture (Wb) - Right Wrist No growth in 48 hours. 01/05/18 10:51 C. difficile DNA Amplification - Final Stool 01/05/18 10:51 Stool Lactoferrin - Final Stool Medical Necessity - Tobacco Use Smoking Status: Never smoker Assessment/Plan All Active Problems Colitis (Acute) Severe sepsis (Acute) Hypokalemia (Acute) Hypotension (Acute) Intra-abdominal free air of unknown etiology (Acute) Abdominal pain, diarrhea, hematochezia, CT scan consistent with pancolitis, more so on the right side and transverse colon. patient is currently doing well with minimal complaints of pain. She has active bowel sounds, but states she is not having any additional flatus or stools. Stool cultures returned as positive for fecal leukocytes, but negative for C. difficile negative for ova and parasites. Patient's currently afebrile. patient's white blood cell count now is low with a lymphocytosis-questionable viral infection with ileus?. Abdominal multiview was obtained yesterday morning. This demonstrated no significant bowel distention. I performed unprepped colonoscopy yesterday morning which demonstrated no significant colitis which demonstrated a small area in the descending colon with mild colitis. I will discontinue the flagyl. If she is tolerating clears, I am comfortable with her being discharged.
[2018-01-07] MEDS: Heparin Injection (Vial) 5,000 UNIT/ML VIAL 5000 UNIT SC (09:32)
[2018-01-07] MEDS: Ciprofloxacin 400 MG/200 ML BAG 200 MG IV (09:32)
[2018-01-07] MEDS: 0.9% Normal Saline 1,000 ML 100 ML IV (09:32)
[2018-01-07 11:20] VITALS: BP 109/69; PULSE 50; RESP 16; TEMP 37; O2SAT 96
[2018-01-07 11:33] VITALS: PULSE 44
--- NOTE | 2018-01-07 13:44 | PCM.DC ---
- Discharge Diagnoses Current Active Problems: Current Active and Chronic Problems Colitis (Acute) You will use the following diet at home:: No restrictions, Regular, Other - advance diet as tolerated Your food should be the consistency of: Regular Discharge Activity: Return to Normal Activity Allergies/Adverse Reactions: Allergies No Known Allergies Allergy (Verified 12/27/15 13:08) Medications to take at Discharge Zolpidem Tartrate [Ambien] 10 mg PO QHS 06/13/15 Alendronate Sodium 1 tab PO QWEEK 01/04/18 Lisinopril [Zestril] 1 tab PO DAILY 01/04/18 Ciprofloxacin [Cipro] 250 mg PO BID #6 tab 01/07/18 The following prescriptions were given: Ciprofloxacin [Cipro] 250 mg PO BID #6 tab Please follow up with your Primary Care Physician in: 1- 2 weeks Test Results: Test results from this visit will be discussed in further detail at your follow-up appointment, if applicable.
--- NOTE | 2018-01-07 13:47 | PCM.DC.SUM ---
Discharge Date and Diagnosis - Problem List Patient Problems: Active and Suspected Problems Colitis (Acute) Date of Admission: 01/04/18 Date of Discharge: 01/07/18 - Primary Discharge Diagnosis Active and Suspected Problems Colitis (Acute) - Secondary Discharge Diagnosis Chronic Problems Hypertension (Chronic) Hospital Course and Treatment Operations: None, - - laproscopic repair of incisional hernia Procedures: Colonoscopy - essentially normal but for a patch of petechial spots clustered Summary of Care Provided: The patient is a 62 year old F who presented with abdominal pain and cramps and with hematochezia and nausea and vomiting CT of the abdomen and pelvis showed pancolitis most severe in the ascending and transverse colon Patient started and treated with IV antibiotics and underwent a colonoscopy which was essentially normal and only showed a patch of petechiae in the transverse colon. Symptom velázquez patient has improved significantly and is stable for home going today Was seen by Dr. Currie and is ok for discharge as well Discharge Activity: Return to Normal Activity Home Medications: Medications to take at Discharge Zolpidem Tartrate [Ambien] 10 mg PO QHS 06/13/15 Alendronate Sodium 1 tab PO QWEEK 01/04/18 Lisinopril [Zestril] 1 tab PO DAILY 01/04/18 Ciprofloxacin [Cipro] 250 mg PO BID #6 tab 01/07/18 Following Prescrptions Were Given to Patient: Ciprofloxacin [Cipro] 250 mg PO BID #6 tab Primary Care Physician: Alexis Clark MD [Primary Care Provider] - Please follow up with your Primary Care Physician in: 1- 2 weeks Medical Necessity - Tobacco Use Smoking Status: Never smoker Meaningful Use Info Meaningful Use Diagnoses (Choose all that apply): None applicable Code Visit Inpatient E&M: 10251 Disch Hosp
== END 2018-01-07 15:26 | disposition home or self-care (01) | DRG 872 ==
LOC: ED 07:21 → PCU 10:18
PROVIDERS: Physician Assistant; Surgery; Admitting Provider Family Medicine; Emergency Provider Emergency Medicine; Family Provider Family Medicine; PCP Family Medicine; Visit Provider Internal Medicine
PROC: 0DJD8ZZ Inspection of Lower Intestinal Tract, Via Natural or Artificial Opening Endoscopic (ICD-10-PCS; CPT 45378; principal; 2018-01-06 10:55)
DX: A41.9 Sepsis, unspecified organism (principal); K92.1 Melena; N17.9 Acute kidney failure, unspecified; R65.20 Severe sepsis without septic shock; K52.9 Noninfective gastroenteritis and colitis, unspecified; Z79.83 Long term (current) use of bisphosphonates; E83.52 Hypercalcemia; I10 Essential (primary) hypertension
CPT/HCPCS: 36415; 74019; 74177; 80048; 82962; 83605; 83615; 83630; 85025; 87040; 87493; 87506; 88305; 93005; 99283; J7030; J7040; Q9967; A4216; J0744; J2405

== ENCOUNTER 2018-12-27 17:40 | Emergency (ER) | payer BC, SELFPAY ==
[2018-12-27 17:41] VITALS: BP 141/84; PULSE 71; RESP 16; TEMP 36.7; O2SAT 98; BMI 26.8
--- NOTE | 2018-12-27 17:56 | CT_ITS ---
STUDY: CT ABDOMEN AND PELVIS WITHOUT CONTRAST REASON FOR EXAM: Female, 63 years old. Pain in abdomen RADIATION DOSAGE (If Supplied By Facility): CTDIvol = ( 8.28 ) mGy, DLP = ( 380.83 ) mGycm TECHNIQUE: Transaxial images were obtained from the dome of the diaphragm to the symphysis pubis without oral contrast, and without intravenous contrast. Sagittal and coronal images were reconstructed. Individualized dose optimization techniques were used for this CT. COMPARISON: None. FINDINGS: Small hiatal hernia. The visualized lung bases are unremarkable. The visualized portions of the heart are within normal limits. 1.2 x 0.8 cm low attenuation within left lobe of liver with attenuation of 11 Hounsfield unit which may be due to possible hepatic cyst. Normal gallbladder and extrahepatic biliary system. Normal spleen. Normal pancreas. Normal bilateral adrenal glands. Normal right kidney. Normal left kidney. Normal visualized stomach. Normal small intestine. There is diverticulosis, with thickening of the colon wall, and pericolonic inflammation changes consistent with acute diverticulitis along junction between sigmoid and rectum in the pelvis. No gross abscess. There is non-visualization of the appendix. There is diffuse atherosclerotic calcification of the abdominal aorta, without a demonstrated aneurysm. Normal inferior vena cava. Normal retroperitoneum. Normal urinary bladder. There is a small umbilical hernia containing fat, along with several small ventral hernia more superiorly. There are diffuse degenerative changes of the visualized lumbar spine. CT/Abdomen/Pelvis without Cont IMPRESSION: Diverticulitis along the junction between sigmoid colon and rectum. No gross abscess. 1.2 x 0.8 cm likely hepatic cyst in the left lobe of liver. Small hiatal hernia. Small fat-containing umbilical hernia along with several small ventral hernia more superiorly. Electronically Signed: Kelvin Barber MD at 18:45 EDT Tel [phone], Service support ,
[2018-12-27 18:11] LABS: Absolute Lymphocyte Count 1.66 X10^3/uL (0.83-4.51); Absolute Neutrophil Count 4.6 X10^3/uL (2.0-7.7); Basophil# 0.03 X10^3/uL; Basophil% 0.4 % (0-1); Eosinophil# 0.08 X10^3/uL; Eosinophils% 1.2 % (0-5); Hematocrit 40.4 % (37-47); Hemoglobin 13.6 g/dL (12.0-15.0); Lymphocyte # 1.66 X10^3/ul (4.0); Lymphocyte % 24.3 % (19-41); Mean Corp Hgb Conc 33.7 g/dL (32-36); Mean Corpuscular Hgb 31.7 pg (27.0-32.0); Mean Corpuscular Volume 94.2 fL (81-99); Mean Platelet Vol. 9.6 fl (6.2-12.0); Monocyte% 7.3 % (0-10); NRBC Flagged by Analyzer 0 % (0-5); Neutrophil # 4.55 X10^3/uL (2.7-7.7); Neutrophil % 66.7 % (47-70); Platelet Count 276 K/mm3 (150-450); RBC Distribution Width CV 12.2 % (11.6-14.6); RBC Distribution Width SD 42.3 fl (35.1-43.9); Red Blood Count 4.29 M/mm3 (4.2-5.4); White Blood Count 6.8 K/mm3 (4.4-11.0)
[2018-12-27 18:24] LABS: ALB/GLOB Ratio 0.8 RATIO (0.9-2.4); AST(SGOT) 14 U/L (15-37); Alanine Aminotransfer ALT/SGPT 14 U/L (13-56); Albumin, Serum 3.5 g/dL (3.2-5.0); Alkaline Phosphatase 94 U/L (45-117); Anion Gap 7 (5-15); BUN 12 mg/dL (7-18); BUN/Creat Ratio 13.5 RATIO (10-20); Calcium,Total 10.7 mg/dL (8.5-10.1); Chloride 102 mmol/L (98-107); Creatinine, Serum 0.89 mg/dL (0.55-1.02); EST Glomerular Filtration Rate 68 mL/min (>60); Est Glom Filt Rate - Afr Amer 83 mL/min (>60); Estimated Creatinine Clearance 57.46 ml/min; Globulin 4.4 g/dL (2.2-4.2); Glucose 95 mg/dL (74-106); Lipase 61 U/L (73-393); Potassium 3.5 mmol/L (3.5-5.1); Protein, Total 7.9 g/dL (6.4-8.2); Sodium Level 135 mmol/L (136-145)
[2018-12-27 18:28] LABS: Bacteria 0 SEEN /hpf (None Seen); Mucous, Urine 0 SEEN /hpf (<or=2+); Red Blood Cells-Urine 0 SEEN /hpf (0-5); Squamous Epithelial Cells - UA 0 SEEN /hpf (5-10)
[2018-12-27 18:33] LABS: Color, Urine Yellow (Yellow); Glucose, Dipstick Normal (Normal); Ketone-Dipstick Negative (Negative); Leukocyte Esterase-Dipstick 500 /ul (Negative); Nitrite-Dipstick Negative (Negative); Occult Blood-Urine 10 /ul (Negative); Protein-Dipstick Negative (Negative); Urine Bilirubin Dipstick Negative (Negative); Urine Clarity Clear (Clear); Urine Urobilinogen Normal (Normal)
[2018-12-27 18:51] LABS: White Blood Cells 0-5 SEEN /hpf (0-5)
--- NOTE | 2018-12-27 19:30 | ED.VIS.GEN ---
History of Present Illness Chief Complaint: Abd Pain Informant: Patient Onset: Today Timing: Continuous Current Severity: Moderate Maximum Severity: Moderate Narrative: Patient presents with 3-day history of left lower quadrant abdominal pain, however she does have some pain in the right lower quadrant. She has no fever chills cough or congestion. She has a history of diverticulitis with similar symptoms in the past. She has no diarrhea or constipation no upper abdominal pain no chest pain or shortness of breath. Pain is mild. Past Medical History - Allergies and Home Meds Allergies/Adverse Reactions: Allergies No Known Allergies Allergy (Verified 12/27/18 17:41) Primary Care Physician: Alexis Clark MD [Primary Care Provider] - Past Medical History: - - Diverticulitis, hypertension Surgical History: hysterectomy, - - exploratory laparotomy with repair of right femoral hernia-no obvious bowel perforation, laparoscopic ventral hernia repair and lysis of adhesions with 23 x 18 cm mesh placement Smoking Status: Never smoker - Family History Maternal Family History: Reports: No pertinent history, - - No history of IBD in her family Sibling Family History: Reports: Heart Disease Review of Systems All systems negative except as indicated General: Denies: Fever Cardiovascular: Denies: Chest pain Respiratory: Denies: Dyspnea, Cough Gastrointestinal: Reports: Abdominal pain. Denies: Nausea, Vomiting Genitourinary: Denies: Dysuria Musculoskeletal: Denies: Myalgias, Back pain Neurological: Denies: Headache, Weakness Physical Exam Vital Signs/Narrative: Vital Signs Temp Pulse Resp BP Pulse Ox 12/27/18 17:41 98.1 F 71 16 141/84 H 98 General: Well nourished, Well developed. Negative for: Acute Distress ENT: Moist mucous membranes Cardiovascular: Regular rate, Regular rhythm Respiratory: No distress, CTA bilaterally Abdomen: Soft, - - There is left lower quadrant abdominal pain some right sided abdominal pain no upper abdominal pain no guarding or rebound. Rectal: Deferred Back: Nontender. Negative for: CVA tenderness Extremities: No edema Skin: Normal color, No rash Neurological: Alert Diagnostic/Tx/Re-eval - Medical Decision Making Patient is found to have diverticulitis, she appears well, I believe outpatient treatment is reasonable. I will start with Augmentin. Discharge stable condition ED Disposition - Plan for ED Patient: Disposition: Home or Assisted Living Diagnosis: Diverticulitis Instructions: Understanding Diverticulosis and Diverticulitis Prescriptions: Amox/Clavulanate Tablet [Augmentin Tablet] 875 mg PO Q12H #20 tab Prescription Printed Referrals: Alexis Clark MD [Primary Care Provider] - 3-5 Days
[2018-12-27] MEDS: Amox/Clavulanate 875 MG Tablet PO (19:58)
== END 2018-12-27 20:01 | disposition home or self-care (01) ==
PROVIDERS: Emergency Provider Emergency Medicine; Family Provider Family Medicine; PCP Family Medicine
DX: K57.32 Diverticulitis of large intestine without perforation or abscess without bleeding (principal); K44.9 Diaphragmatic hernia without obstruction or gangrene; K42.9 Umbilical hernia without obstruction or gangrene; K43.9 Ventral hernia without obstruction or gangrene; I10 Essential (primary) hypertension
CPT/HCPCS: 74176; 80053; 81001; 83690; 85025; 99284; A4216

== ENCOUNTER 2019-10-03 20:32 | Emergency (ER) | payer BC, SELFPAY ==
[2019-10-03 20:33] VITALS: BP 168/108; PULSE 66; RESP 15; TEMP 36.6; O2SAT 99; BMI 27.2
--- NOTE | 2019-10-03 20:53 | CT_ITS ---
STUDY: CT ABDOMEN AND PELVIS WITHOUT CONTRAST REASON FOR EXAM: Female, 64 years old. STOMACH PAIN/HX OF COLITIS. Prior appendectomy, DONNA/BSO, hernia repair and repair of diverticular abscess RADIATION DOSAGE (If Supplied By Facility): CTDIvol = ( 8.33 ) mGy, DLP = ( 399.52 ) mGycm TECHNIQUE: Transaxial images were obtained from the dome of the diaphragm to the symphysis pubis without oral contrast, and without intravenous contrast. Sagittal and coronal images were reconstructed. Individualized dose optimization techniques were used for this CT. COMPARISON: December 27, 2018 FINDINGS: The visualized lung bases are unremarkable. The visualized portions of the heart are within normal limits. Moderate-sized hiatal hernia is noted. Liver is normal size. There is a tiny cyst in left lobe. Bile ducts aren''t dilated. Normal gallbladder and extrahepatic biliary system. Normal spleen. Normal pancreas. Normal bilateral adrenal glands. Normal right kidney. Normal left kidney. Normal visualized stomach. Normal small intestine. There is concentric thickening of the mid to distal descending colon with stranding in the fat consistent with nonspecific colitis. Mild diverticular changes of the sigmoid colon without evidence for acute diverticulitis.. Appendix not visualized consistent with appendectomy. Minor atherosclerotic changes of the aorta without evidence for aneurysm Normal inferior vena cava. Normal retroperitoneum. Normal urinary bladder. Uterus not visualized consistent with hysterectomy. Bilateral fat-containing inguinal hernias are noted.. Normal osseous structures. CT/Abdomen/Pelvis without Cont IMPRESSION: Findings consistent with nonspecific colitis involving the mid to distal descending colon. Electronically Signed: Maynor Kauffman MD at 21:57 EDT , Service support ,
--- NOTE | 2019-10-03 20:55 | ED.VIS.GEN ---
History of Present Illness Chief Complaint: GI Bleed Informant: Patient Onset: Today Narrative: Presents for evaluation lower abdominal pain that awakened her this morning, noticed 2 bowel movements latest active bright red blood. No fevers. No nausea or vomiting. No recent antibiotics. History of diverticulitis x2 in the past most recent December of last year. Had a colonoscopy Dr. Currie 2 years ago. No urinary symptoms. Prior similar symptoms: Yes Past Medical History - Allergies and Home Meds Allergies/Adverse Reactions: Allergies No Known Allergies Allergy (Verified 10/03/19 20:33) Primary Care Physician: Alexis Clark MD [Primary Care Provider] - Past Medical History: - - Hypertension, diverticulitis Surgical History: hysterectomy, - - exploratory laparotomy with repair of right femoral hernia-no obvious bowel perforation, laparoscopic ventral hernia repair and lysis of adhesions with 23 x 18 cm mesh placement Smoking Status: Never smoker - Family History Maternal Family History: Reports: No pertinent history, - - No history of IBD in her family Sibling Family History: Reports: Heart Disease Review of Systems General: Denies: Chills, Fever, Sweats Eyes: Denies: Visual changes - bilaterally, Diplopia ENT: Denies: Rhinorrhea, Sore throat Cardiovascular: Denies: Chest pain, Palpitations Respiratory: Denies: Dyspnea, Cough, Dyspnea on exertion Gastrointestinal: Reports: Abdominal pain, Hematochezia. Denies: Nausea, Vomiting, Diarrhea, Melena Genitourinary: Denies: Dysuria, Hematuria, Frequency Musculoskeletal: Denies: Back pain, Extremity Pain Skin: Denies: Rash, Wounds Neurological: Denies: Headache, Weakness, Numbness Physical Exam Vital Signs/Narrative: Vital Signs Temp Pulse Resp BP Pulse Ox 10/03/19 20:33 97.8 F 66 15 168/108 H 99 General: Well nourished, Well developed, No Acute Distress Head: Normocephalic, Atraumatic Eyes: Perrl, EOMI ENT: Moist mucous membranes, No rhinorrhea Neck: Supple, Nontender Cardiovascular: Regular rate, Regular rhythm, No murmurs Respiratory: No distress, CTA bilaterally, Chest nontender Abdomen: Soft, Nondistended, Normal bowel sounds, Tender, - - Suprapubic tenderness, mild left lower quadrant, no guarding or rebound Back: Nontender, Normal Inspection Extremities: Nontender, No edema Skin: Normal color, No rash Neurological: Alert, Oriented x3, Cranial nerves II-XII grossly intact, Normal Strength, Normal Sensation Psychological: Normal affect, Normal Mood Diagnostic/Tx/Re-eval Clinical Impression(s) from Imaging Studies Abdomen/Pelvis CT 10/03/19 20:53 IMPRESSION: Findings consistent with nonspecific colitis involving the mid to distal descending colon. Electronically Signed: Maynor Kauffman MD at 21:57 EDT , Service support , Abnormal Lab Results 10/03/19 10/03/19 10/03/19 20:46 20:46 20:46 WBC 8.3 RBC 4.58 Hgb 14.1 Hct 42.5 MCV 92.8 MCH 30.8 MCHC 33.2 RDW Std Deviation 41.2 RDW Coeff of [place] 12.0 Plt Count 293 MPV 9.7 Immature Gran % (Auto) 0.200 Neut % (Auto) 70.2 H Lymph % (Auto) 21.0 [place] % (Auto) 6.4 Eos % (Auto) 1.7 Baso % (Auto) 0.5 Absolute Neuts (auto) 5.8 Absolute Lymphs (auto) 1.74 Nucleated RBC % 0 PT 13.4 INR 1.1 APTT 25.0 Sodium 137 Potassium 4.3 Chloride 107 Carbon Dioxide 25.0 Anion Gap 5 BUN 13 Creatinine 0.77 Estim Creat Clear Calc 65.54 Est GFR (MDRD) Af Amer 97 Est GFR (MDRD) Non-Af 80 BUN/Creatinine Ratio 16.9 Glucose 100 Calcium 9.3 - Medical Decision Making Patient with a nonsurgical abdomen, vital signs stable, she declines any pain medicines. Work-up initiated due to her colitis history. Hemoglobin stable white count normal CAT scan notes mild colitis of the mid to descending colon. She had no bleeding in the ED. She started on Augmentin for 10 days. Strict signs and symptom discussed return otherwise follow-up with her PCP. All questions were answered. ED Disposition - Plan for ED Patient: Disposition: Home or Assisted Living Diagnosis: Colitis, Rectal bleed Instructions: ED Diverticulitis, ED Hematochezia Stable Prescriptions: Amox/Clavulanate Tablet [Augmentin Tablet] 875 mg PO Q12H #20 tab Transmission Status: Pending to [facility]/pharmacy #[id number] Referrals: Alexis Clark MD [Primary Care Provider] - 3-5 Days
[2019-10-03 21:06] LABS: Absolute Lymphocyte Count 1.74 X10^3/uL (0.83-4.51); Absolute Neutrophil Count 5.8 X10^3/uL (2.0-7.7); Basophil# 0.04 X10^3/uL; Basophil% 0.5 % (0-1); Eosinophil# 0.14 X10^3/uL; Eosinophils% 1.7 % (0-5); Hematocrit 42.5 % (37-47); Hemoglobin 14.1 g/dL (12.0-15.0); Lymphocyte # 1.74 X10^3/ul (4.0); Mean Corp Hgb Conc 33.2 g/dL (32-36); Mean Corpuscular Hgb 30.8 pg (27.0-32.0); Mean Corpuscular Volume 92.8 fL (81-99); Mean Platelet Vol. 9.7 fl (6.2-12.0); Monocyte# 0.53 X10^3/uL; Monocyte% 6.4 % (0-10); NRBC Flagged by Analyzer 0 % (0-5); Neutrophil # 5.81 X10^3/uL (2.7-7.7); Neutrophil % 70.2 % (47-70); Platelet Count 293 K/mm3 (150-450); RBC Distribution Width SD 41.2 fl (35.1-43.9); Red Blood Count 4.58 M/mm3 (4.2-5.4); White Blood Count 8.3 K/mm3 (4.4-11.0)
[2019-10-03] MEDS: 0.9% Normal Saline 1,000 ML 1000 ML IV (21:06)
[2019-10-03 21:15] LABS: International Normalized Ratio 1.1; Prothrombin Time (Protime)PT. 13.4 SECONDS (11.7-14.9)
[2019-10-03 21:24] LABS: Anion Gap 5 (5-15); BUN 13 mg/dL (7-18); BUN/Creat Ratio 16.9 RATIO (10-20); Calcium,Total 9.3 mg/dL (8.5-10.1); Chloride 107 mmol/L (98-107); Creatinine, Serum 0.77 mg/dL (0.55-1.02); EST Glomerular Filtration Rate 80 mL/min (>60); Est Glom Filt Rate - Afr Amer 97 mL/min (>60); Estimated Creatinine Clearance 65.54 ml/min; Glucose 100 mg/dL (74-106); Potassium 4.3 mmol/L (3.5-5.1); Sodium Level 137 mmol/L (136-145)
[2019-10-03] MEDS: Amox/Clavulanate 875 MG Tablet PO (22:42)
[2019-10-03 22:55] VITALS: PULSE 73; RESP 14; O2SAT 99
== END 2019-10-03 22:55 | disposition home or self-care (01) ==
PROVIDERS: Emergency Provider Emergency Medicine; PCP Family Medicine
DX: K52.9 Noninfective gastroenteritis and colitis, unspecified (principal); K62.5 Hemorrhage of anus and rectum; I10 Essential (primary) hypertension
CPT/HCPCS: 74176; 80048; 85025; 85610; 85730; 99285; J7030; A4216

== ENCOUNTER 2020-02-16 06:17 | Emergency (ER) | payer BC, SELFPAY ==
[2020-02-16 06:17] VITALS: BP 131/81; PULSE 72; RESP 18; TEMP 36.4; O2SAT 98; BMI 26.6
--- NOTE | 2020-02-16 06:27 | CT_ITS ---
STUDY: CT ABDOMEN AND PELVIS WITH CONTRAST REASON FOR EXAM: Female, 64 years old. DIARRHEA THIS AM. HX OF DIVERTICULITIS, HYSTERECTOMY, APPENDECTOMY, DIVERTICULAR REPAIR RADIATION DOSAGE (If Supplied By Facility): CTDIvol = ( 14.637 ) mGy, DLP = ( 834.48 ) mGycm TECHNIQUE: Transaxial images were obtained from the dome of the diaphragm to the symphysis pubis with oral contrast. Oral and amp;amp; IV Gastrografin and amp;amp; 100mL Isovue-300 was administered. Sagittal and coronal images were reconstructed. Individualized dose optimization techniques were used for this CT. COMPARISON: 10/03/2019 FINDINGS: The visualized lung bases are unremarkable. The visualized portions of the heart are within normal limits. Normal liver. Normal gallbladder and extrahepatic biliary system. Normal spleen. Normal pancreas. Normal bilateral adrenal glands. Normal right kidney. Normal left kidney. There is a small hiatal hernia. Normal small intestine. There are multiple colonic diverticula consistent with diverticulosis. There is wall thickening of the collapsed transverse colon with subtle stranding of surrounding fat suggestive of infectious colitis. No diverticular seen in this segment. There is non-visualization of the appendix. Normal abdominal aorta. Normal inferior vena cava. Normal retroperitoneum. Normal urinary bladder. Normal abdominal wall. Normal osseous structures. CT/Abdomen/Pelvis WITH Contrast IMPRESSION: Mild inflammatory change of the transverse colon possibly consistent with infectious colitis or less likely diverticulitis. No abscess or perforation. Electronically Signed: Simon Finley MD at 8:41 EDT Tel , Service support ,
--- NOTE | 2020-02-16 06:28 | ED.VIS.GEN ---
History of Present Illness Chief Complaint: Abd Pain Informant: Patient Onset: Today Current Severity: Moderate Maximum Severity: Moderate Narrative: Patient presents with abdominal pain and diarrhea since 1 AM this morning. She states she went to bed at 10 PM and felt okay. She has had diverticulitis in the past with similar symptoms. Patient complains of pain across her lower abdomen, slightly worse on the left. She states that the diarrhea has been turning more pink in color and may be some blood associated. She denies vomiting. She has not had fever or chills. - Past Medical History (1) Diverticulitis Status: Resolved (2) Colitis Status: Resolved (3) Hypertension Status: Chronic Past Medical History - Allergies and Home Meds Allergies/Adverse Reactions: Allergies No Known Allergies Allergy (Verified 10/03/19 20:33) Primary Care Physician: Alexis Clark MD [Primary Care Provider] - Surgical History: appendectomy, hysterectomy, - - exploratory laparotomy with repair of right femoral hernia-no obvious bowel perforation, laparoscopic ventral hernia repair and lysis of adhesions with 23 x 18 cm mesh placement Smoking Status: Never smoker - Family History Maternal Family History: Reports: No pertinent history, - - No history of IBD in her family Sibling Family History: Reports: Heart Disease Review of Systems General: Denies: Chills, Fever Eyes: Denies: Visual changes - bilaterally ENT: Denies: Bilateral ear pain Cardiovascular: Denies: Chest pain Respiratory: Denies: Dyspnea, Cough Gastrointestinal: Reports: Abdominal pain, Diarrhea. Denies: Nausea, Vomiting Genitourinary: Denies: Dysuria Musculoskeletal: Denies: Swelling, Extremity Pain Skin: Denies: Rash Neurological: Denies: Headache Hematologic: Denies: Easy bruising, Easy bleeding Allergy: Denies: Uticaria Physical Exam Vital Signs/Narrative: Vital Signs Temp Pulse Resp BP Pulse Ox 02/16/20 06:17 97.5 F L 72 18 131/81 H 98 Inital Vital Signs reviewed: Yes General: Well nourished, Well developed Head: Normocephalic ENT: Moist mucous membranes Neck: Supple Cardiovascular: Regular rate, Regular rhythm Respiratory: No distress, CTA bilaterally Abdomen: Soft, Tender - Mild diffuse tenderness outpatient, slightly worse in the left lower quadrant., Hypoactive bowel sounds. Negative for: Guarding, Rebound tenderness Extremities: Nontender Skin: Normal color Neurological: Alert, Oriented x3 Psychological: Normal affect Diagnostic/Tx/Re-eval 02/16/20 06:27 Abdomen/Pelvis WITH Contrast [CT] Stat Laboratory Results 02/16/20 02/16/20 06:25 06:25 WBC 8.7 RBC 4.68 Hgb 14.5 Hct 45.3 MCV 96.8 MCH 31.0 MCHC 32.0 RDW Std Deviation 45.4 H RDW Coeff of [place] 12.7 Plt Count 318 MPV 9.4 Immature Gran % (Auto) 0.200 Neut % (Auto) 88.8 H Lymph % (Auto) 7.6 L [place] % (Auto) 3.0 Eos % (Auto) 0.1 Baso % (Auto) 0.3 Absolute Neuts (auto) 7.8 H Absolute Lymphs (auto) 0.66 L Nucleated RBC % 0 Sodium 137 Potassium 3.7 Chloride 105 Carbon Dioxide 26.0 Anion Gap 6 BUN 16 Creatinine 0.95 Estim Creat Clear Calc 53.13 Est GFR (MDRD) Af Amer 76 Est GFR (MDRD) Non-Af 63 BUN/Creatinine Ratio 16.9 Glucose 132 H Calcium 10.5 H Total Bilirubin 0.40 Direct Bilirubin 0.10 AST 16 ALT 19 Alkaline Phosphatase 95 Total Protein 7.7 Albumin 3.8 Globulin 3.9 - Medical Decision Making Patient declined anything for pain or nausea while in the emergency room. Blood work is unremarkable otherwise slight left shift is noted with a normal white count. CT scan will be signed out to oncoming physician secondary to end of shift. Patient was updated with this plan. ED Disposition - Plan for ED Patient: Referrals: Alexis Clark MD [Primary Care Provider] -
[2020-02-16 06:31] LABS: Absolute Lymphocyte Count 0.66 X10^3/uL (0.83-4.51); Absolute Neutrophil Count 7.8 X10^3/uL (2.0-7.7); Basophil# 0.03 X10^3/uL; Basophil% 0.3 % (0-1); Eosinophil# 0.01 X10^3/uL; Eosinophils% 0.1 % (0-5); Hematocrit 45.3 % (37-47); Hemoglobin 14.5 g/dL (12.0-15.0); Lymphocyte # 0.66 X10^3/ul (4.0); Lymphocyte % 7.6 % (19-41); Mean Corpuscular Volume 96.8 fL (81-99); Mean Platelet Vol. 9.4 fl (6.2-12.0); Monocyte# 0.26 X10^3/uL; NRBC Flagged by Analyzer 0 % (0-5); Neutrophil # 7.75 X10^3/uL (2.7-7.7); Neutrophil % 88.8 % (47-70); Platelet Count 318 K/mm3 (150-450); RBC Distribution Width CV 12.7 % (11.6-14.6); RBC Distribution Width SD 45.4 fl (35.1-43.9); Red Blood Count 4.68 M/mm3 (4.2-5.4); White Blood Count 8.7 K/mm3 (4.4-11.0)
[2020-02-16 06:44] LABS: AST(SGOT) 16 U/L (15-37); Alanine Aminotransfer ALT/SGPT 19 U/L (13-56); Albumin, Serum 3.8 g/dL (3.2-5.0); Alkaline Phosphatase 95 U/L (45-117); Anion Gap 6 (5-15); BUN 16 mg/dL (7-18); BUN/Creat Ratio 16.9 RATIO (10-20); Calcium,Total 10.5 mg/dL (8.5-10.1); Chloride 105 mmol/L (98-107); Creatinine, Serum 0.95 mg/dL (0.55-1.02); EST Glomerular Filtration Rate 63 mL/min (>60); Est Glom Filt Rate - Afr Amer 76 mL/min (>60); Estimated Creatinine Clearance 53.13 ml/min; Globulin 3.9 g/dL (2.2-4.2); Glucose 132 mg/dL (74-106); Potassium 3.7 mmol/L (3.5-5.1); Protein, Total 7.7 g/dL (6.4-8.2); Sodium Level 137 mmol/L (136-145)
[2020-02-16 07:08] LABS: Lactic Acid 1.7 mmol/L (0.4-1.9)
[2020-02-16] MEDS: 0.9% Normal Saline 1,000 ML 150 ML IV (07:36)
--- NOTE | 2020-02-16 09:53 | ED.VISSUMM ---
- ER Visit Summary Date of Service: 02/16/20 Chief Complaint: [] History of Present Illness: The patient is a 64 F [] Physical Examination: [] Test Results: [] Emergency Department Course and Treatment: [] Treatment Plan: [] Disposition: [] Impression: [] This note was generated with [employer] dictation software. It may contain incorrect words, spelling, and punctuation that were not noted in review of the chart prior to signing ED Disposition - Plan for ED Patient: Disposition: Home or Assisted Living Instructions: ED Diverticulitis Prescriptions: Amox/Clavulanate Tablet [Augmentin Tablet] 875 mg PO Q12H #20 tab Transmission Status: Pending to [facility]/pharmacy #[id number] Referrals: Alexis Clark MD [Primary Care Provider] -
[2020-02-16 10:33] VITALS: BP 134/77; PULSE 62; RESP 15; O2SAT 98
[2020-02-16] MEDS: Amox/Clavulanate 875 MG Tablet PO (10:34)
== END 2020-02-16 10:34 | disposition home or self-care (01) ==
PROVIDERS: Emergency Provider Emergency Medicine; PCP Family Medicine
DX: K57.92 Diverticulitis of intestine, part unspecified, without perforation or abscess without bleeding (principal); I10 Essential (primary) hypertension
CPT/HCPCS: 74177; 80048; 80076; 83605; 85025; 99284; Q9967; A4216